=== PATIENT | male | born 1955 | race Caucasian/White ===

== ENCOUNTER 2017-08-28 13:05 | Emergency (ER) | payer BC ==
[~2017-08-28] VITALS: Ht 200.7 cm; Wt 127.3 kg
[2017-08-28 13:09] VITALS: TEMP 97.6
[2017-08-28] MEDS ORDERED: PRILOSEC 20MG20 MG PO (13:57)
[2017-08-28 16:57] VITALS: BP 117/91; PULSE 50
== END 2017-08-28 17:04 | disposition home or self-care (01) ==
LOC: COL.ER 13:05
DX: T18.128A Food in esophagus causing other injury, initial encounter (principal); K21.9 Gastro-esophageal reflux disease without esophagitis
CPT/HCPCS: J1610; J2060; J2250; J3010; J7030